=== PATIENT | male | born 1945 | race Caucasian/White ===

== ENCOUNTER 2016-11-05 06:41 | Inpatient (IN) ==
[2016-11-05] MEDS ORDERED: DIAZEPAM 5 MG TABLET PO ONE (07:21)
[2016-11-05] MEDS ORDERED: PANTOPRAZOLE 40 MG TABLET PO ONE ×2 (07:21→07:53)
[2016-11-05] MEDS ORDERED: LACTATED RINGERS 1,000 ML IV SCH (07:30)
[2016-11-05 07:37] LABS: INR 1.3; PT Patient Result 13.6 SECS; Partial Thromboplastin Time 28.5 SECS (0-40)
[2016-11-05] MEDS ORDERED: ceFAZolin 1,000 MG VIAL ONE (07:52)
[2016-11-05] MEDS ORDERED: SODIUM CHLORIDE 0.9% 100 ML IV ONE (07:53)
[2016-11-05] MEDS ORDERED: DIAZEPAM 5 MG TABLET ONE (07:53)
--- NOTE | 2016-11-05 08:00 | History and Physical Update ---
History and Physical Update - History and Physical H&P was reviewed, the patient examined and there: are no changes in the patients condition since last H&P was completed.
[2016-11-05] MEDS ORDERED: VANCOMYCIN 1,000 MG VIAL ONE (10:36)
[2016-11-05] MEDS ORDERED: HEPARIN 5,000 UNIT/1 ML VIAL ONE (10:36)
[2016-11-05] MEDS: SODIUM CHLORIDE 0.9% 1,000 ML IV SCH ×2 (10:45→11:31)
[2016-11-05] MEDS ORDERED: ETOMIDATE 20 MG/10 ML VIAL IV ONE (10:50)
[2016-11-05] MEDS ORDERED: LIDOCAINE 1% 5 ML VIAL ONE (10:50)
[2016-11-05] MEDS ORDERED: ONDANSETRON 4 MG/2 ML VIAL ONE ×2 (10:50→12:26)
[2016-11-05] MEDS ORDERED: ROCURONIUM 100 MG/10 ML VIAL IV ONE (10:50)
[2016-11-05] MEDS ORDERED: PROPOFOL 200 MG/20 ML VIAL IV ONE (10:50)
[2016-11-05] MEDS ORDERED: HEPARIN 1,000 UNIT/1 ML VIAL ONE (10:50)
[2016-11-05] MEDS ORDERED: ONDANSETRON 4 MG/2 ML VIAL IV PRN ×2 (12:03→12:35)
[2016-11-05] MEDS ORDERED: NALOXONE 0.4 MG/ML VIAL IV PRN (12:03)
[2016-11-05] MEDS ORDERED: oxyCODONE/ACETAMINOPHEN 5-325 MG TABLET PO PRN ×2 (12:03)
[2016-11-05] MEDS ORDERED: PROMETHAZINE 25 MG/1 ML VIAL IM PRN (12:03)
[2016-11-05] MEDS ORDERED: DEXTROSE 50% 25 GM/50 ML SYRINGE IV PRN (12:03)
[2016-11-05] MEDS ORDERED: GLUCAGON 1 MG VIAL IM PRN (12:03)
[2016-11-05] MEDS ORDERED: HYDROmorphone 2 MG/1 ML VIAL IV PRN ×2 (12:03)
[2016-11-05] MEDS ORDERED: DOPamine 800 MG/250 ML PREMIX IV PRN (12:03)
--- NOTE | 2016-11-05 12:14 | Operative Note ---
Date of procedure: 11/05/16 Procedure: Dr. Peguero operative report on Gonzalo Cordoba. Surgeon: Sudhir Anesthesia: General endotracheal Preoperative diagnosis: High-grade left internal carotid artery stenosis possibly symptomatic Postoperative diagnosis: Same Procedure: Left carotid endarterectomy with bovine pericardial patch Indications for the procedure: Mr. Gaona is a 71-year-old man with possibly symptomatic high-grade stenosis of the left internal carotid artery offered a left carotid endarterectomy have explained the alternatives risks and complications which he understands and accepts Description of the procedure: After the induction of general endotracheal anesthesia the patient was placed in supine position his neck modestly extended and turned to the right. His left neck is prepped with ChloraPrep and draped in the usual fashion. An incision is made in a skin crease below the angle of the mandible and carried into the subplatysmal space and anterior jugular vein and the anterior facial vein are separately ligated hemoclipped and divided dissection is carried out anterior to the internal jugular vein locating the common carotid artery which is controlled with a maxi vessel loop. The patient received 5000 units of intravenous heparin dissection is carried out distally along the common carotid past the bifurcation separately controlling the external and internal carotid arteries and the superior thyroid with Vesseloops. With adequate anticoagulation Vesseloops were brought up to control the artery and a longitudinal arteriotomy was made from the common carotid through the diseased bifurcation to the more normal distal internal carotid artery. An in-line Cook-[place] partial treatment is placed into the internal carotid allowed to backflush then placed into the common carotid to restore flow. Notably there is fresh hemorrhage in the plaque at the origin of the internal carotid artery that is causing high-grade stenosis. Standard endarterectomy was carried out removing the diseased intima media from the carotid bifurcation it feathered out very nicely on both internal and external carotid arteries. Loose flaps of medial removed under loupe magnification and the endarterectomized segment was flushed with heparinized saline. Bovine pericardial patch and 5-0 Prolene are used to close the arteriotomy. Shunt was removed and appropriate time backflushing internal and external carotid arteries and flushing again with heparinized saline. With the arteriotomy closed flow was initiated from the common carotid into the external and then restored into the internal carotid artery. Hemostasis is reasonable Doppler signal in the internal/external and common carotid arteries are quite good. Heparin was partially reversed with 25 mg of protamine flow was rechecked and is good the incision is irrigated with vancomycin a pledget of Surgicel was placed over the arteriotomy quarter inch [place] drain is placed the incisions closed with 3-0 Monocryl on the platysma and skin clips on the skin. Blood loss estimated at 100 250 cc sponge needle and aspirate counts are correct and the patient was taken to the recovery room in stable condition. This Dr. Peguero operative report on Gonzalo Gaona. Surgeon / Physician: Swapnil Peguero Discharge Plan - Discharge Medications No Action Meloxicam [Mobic] 15 mg PO DAILY Pravastatin Sodium 80 mg PO DAILY dilTIAZem HCl [Taztia Xt] 120 mg PO DAILY Warfarin Sodium 5 mg PO DAILY Omeprazole [Prilosec] 20 mg PO DAILY Metoprolol Tartrate 50 mg PO BID Enoxaparin [Lovenox] 40 mg SQ DIRECTED Magnesium Chloride [Slow Mag] 128 mg PO BID - Follow Up or Referral - Forms/Instructions
[2016-11-05] MEDS ORDERED: HYDROmorphone 2 MG/1 ML VIAL ONE (12:25)
--- NOTE | 2016-11-05 12:25 | Anesthesia Post-Op ---
Anesthesia Post OP - Post Ansesthetic Evaluation Patient seen in post op: Yes Resp: within normal limits CV: within normal limits Mental: within normal limits Temp: within normal limits [id number]: within normal limits Nausea and Vomiting: within normal limits Pain: within normal limits
[2016-11-05] MEDS: HYDROmorphone 2 MG/1 ML VIAL IV PRN ×4 (12:30→12:45)
[2016-11-05] MEDS ORDERED: METOPROLOL TARTRATE 50 MG TABLET PO SCH (12:30)
[2016-11-05] MEDS ORDERED: MORPHINE 2 MG/1 ML SYRINGE IV ONE (12:55)
[2016-11-05] MEDS ORDERED: SEVOFLURANE 1 UNIT/15 MINUTE INH ONE (13:37)
[2016-11-05] MEDS ORDERED: fentaNYL 100 MCG/2 ML VIAL ONE (13:37)
[2016-11-05] MEDS ORDERED: LACTATED RINGERS 1,000 ML IV ONE (13:37)
[2016-11-05] MEDS ORDERED: SODIUM CHLORIDE 0.9% 1,000 ML IV ONE (13:37)
[2016-11-05] MEDS: LACTATED RINGERS 1,000 ML IV SCH ×2 (13:50→23:50)
[2016-11-05] MEDS: ASPIRIN EC 81 MG TABLET PO SCH (16:27)
[2016-11-05] MEDS ORDERED: PHENYLEPHRINE DRIP 40 MG/250 ML PREMIX IV ONE (18:00)
--- NOTE | 2016-11-05 18:04 | Event Note ---
Staff is awake alert and oriented with no headache but is nauseated with particularly low blood pressure his neck looks good without hematoma will hold his antihypertensive meds and add William-Synephrine or dopamine to try to get his blood pressure little bit higher
[2016-11-05] MEDS ORDERED: DEXAMETHASONE INJ 20 MG in SODIUM CHLORIDE 0.9% 50 ML IV ONE (18:05)
[2016-11-05] MEDS ORDERED: PHENYLEPHRINE DRIP 40 MG/250 ML PREMIX IV SCH (18:07)
[2016-11-05] MEDS: MAGNESIUM CHLORIDE 64 MG TABLET PO SCH (21:05)
--- NOTE | 2016-11-06 08:56 | Event Note ---
Mr. Gaona is awake alert oriented feeling well this morning his blood pressure still running a little bit low so we are holding his antihypertensives but will resume Coumadin and today. 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 I think we can safely remove him to a room upstairs but I will suggest a monitored bed it is possible will let him go home this afternoon.
[2016-11-06] MEDS ORDERED: PANTOPRAZOLE 40 MG TABLET PO SCH (09:00)
[2016-11-06] MEDS ORDERED: DILTIAZEM CD 120 MG CAPSULE PO SCH (09:00)
[2016-11-06] MEDS ORDERED: PRAVASTATIN 40 MG TABLET PO SCH (09:00)
[2016-11-06] MEDS ORDERED: WARFARIN 5 MG TABLET PO SCH (09:00)
[2016-11-06] MEDS ORDERED: MELOXICAM 7.5 MG TABLET PO SCH (09:00)
[2016-11-06] MEDS: LACTATED RINGERS 1,000 ML IV SCH (09:42)
[2016-11-06] MEDS: MAGNESIUM CHLORIDE 64 MG TABLET PO SCH (09:56)
[2016-11-06] MEDS: ASPIRIN EC 81 MG TABLET PO SCH (09:58)
--- NOTE | 2016-11-06 13:22 | Pathology Report from [facility] ---
[facility] ACCESSION # : [id number] PATIENT NAME : Gonzalo Cordoba ORDERING DR : KENRICK WREN MD CLINICAL HX: Left carotid stenosis POST-OP DX: Same SPECIMEN INFO: Plaque left carotid GROSS DESCRIPTION: The specimen is received in formalin labeled with the patients name and consists of an endarectomy measuring 3.5 x 0.8 cm. A sales donor recruitment representative section submitted in one cassette. DIAGNOSIS FOR GONZALO CORDOBA: LEFT CAROTID ARTERY, ENDARTERECTOMY: Calcified atheromatous plaque. COLLECTED DATE: 11/05/2016 [facility] REPORT DATE: 11/06/2016 ELECTRONICALLY SIGNED BY: Joel Berger M.D. 11/06/2016 - 10:23:27 [facility]
[2016-11-06] MEDS ORDERED: ENOXAPARIN 40 MG/0.4 ML SYRINGE SUBCUT SCH (14:00)
--- NOTE | 2016-11-06 15:21 | Discharge Summary ---
Hospital Course - Hospital Course Hospital Course: Continue her from a 71-year-old man admitted with a high-grade possibly symptomatic left internal carotid artery stenosis. He underwent left carotid endarterectomy and has done well he was initially nauseated but this has resolved he is tolerating a diet ambulatory his neck looks good with no hematoma vital signs and neurologic status have been fully intact. He is ready for discharge and will resume his home medicines which includes warfarin which was has been given today. I have instructed him in wound care exercise restrictions expected recovery driving restrictions I will give him [place] 7 hands #20 for pain and I will see him in the office next week. I did add 81 mg aspirin to his normal mental medications Specialty Discharge - Follow Up or Referrals Follow up with: Swapnil Peguero MD [Primary Care Provider] - 11/12/16 3:00 pm (appt. nov 12 @3:00) Discharge Plan - Discharge Data Disposition: Disch To Home/Self Care Condition at Discharge: Stable Discharge Diet: advance to your usual diet Activity: resume usual activities as tolerated Hygiene: may shower Weight Bearing at Discharge: full weight bearing Driving: not until seen by doctor Contact your physician if you experience:: fever over 101, Redness or swelling, Bleeding - Discharge Medications New Aspirin EC Tab 81 mg PO DAILY tablet Enoxaparin [Lovenox] 40 mg SUBCUT Q24H syringe HYDROcodone/ACETAMIN 7.5-325 [[place] 7.5-325] 1 tablet PO Q6H PRN #20 tablet PRN Reason: Pain Meloxicam [Mobic] 15 mg PO DAILY tablet Magnesium Chloride [Slow Mag] 128 mg PO BID tablet Continue Pravastatin Sodium 80 mg PO DAILY dilTIAZem HCl [Taztia XT] 120 mg PO DAILY Warfarin Sodium 5 mg PO DAILY Omeprazole [Prilosec] 20 mg PO DAILY Metoprolol Tartrate 50 mg PO BID Discontinued Meloxicam [Mobic] 15 mg PO DAILY Enoxaparin [Lovenox] 40 mg SQ DIRECTED Magnesium Chloride [Slow Mag] 128 mg PO BID - Follow Up or Referral Follow Up: Swapnil Peguero MD [Primary Care Provider] - 11/12/16 3:00 pm (appt. nov 12 @3:00) - Forms/Instructions Exam - Constitutional Vitals: Period Temp Pulse Resp BP Sys/Quinones Pulse Ox Last 24 Hr 97.1 F-97.9 F 56-112 10-21 79-146/33-72 92-100 Discharge Results Procedures and tests throughout hospitalization: Pending Orders 11/05/16 13:20 MRSA Surveillence, Inf Control Routine Labs on day of discharge: Preliminary micro results at discharge 11/05/16 13:20 MRSA Surveillance Culture - Preliminary Nasal Passage No MRSA isolated. DS: Provider Date of admission: 11/05/16 06:41 Primary care physician: Swapnil Peguero MD Attending physician on admission: Swapnil Peguero MD Consults: 11/06/16 13:21 Consult to Physician [CONS] Routine Comment: patient known to you Consulting Provider: Solis Delgado Consulting Provider Notified: Yes When should Consulting Provider be notified: Now Person Notified: bienvenido byrnes Date Notified: 11/06/16 Time Notified: 13:33 Discharging clinician: Swapnil Peguero MD
[2016-11-06 16:25] VITALS: BP 111/74
== END 2016-11-06 16:50 | disposition home or self-care (01) | DRG 39 ==
LOC: N.SDSINP 06:41 → N.ICU 13:16 → N.3E 11-06 13:12
PROVIDERS: ADMIT Surgery; ATTEND Surgery